=== PATIENT | female | born 1960 | race Asian ===

== ENCOUNTER 2021-02-27 10:41 | Outpatient (CLI) | payer BC, SELFPAY ==
--- NOTE | ~2021-02-27 | MR_ITS ---
EXAMINATION: MR shoulder RT wo con DATE: 02/27/2021 11:44 INDICATION: Acute pain of right shoulder. TECHNIQUE: Magnetic resonance imaging (MRI) of the right shoulder was performed without intravenous c ontrast. Sequences included axial PD-weighted FS FSE, coronal oblique PD-weighted FS FSE and T2-weigh cecy FS FSE, and sagittal oblique T2-weighted FS FSE and T1-weighted FSE. COMPARISON: None. FINDINGS: Coracoacromial arch: The acromion undersurface is curved in morphology (type II). Subacromial spurring is noted. There is moderate acromioclavicular joint osteoarthritis including inferiorly directed osteophytes. There is m oderate subacromial/subdeltoid bursitis. Rotator cuff: There is a full-thickness tear of supraspinatus tendon and anterior infraspinatus tendon measuring 18 mm anterior to posterior by 13 mm proximal to distal. There is a small partial tear at the infraspin atus myotendinous junction. Teres minor tendon is normal. There is severe subscapularis tendinopathy. There is no asymmetric fatty atrophy of the rotator cuff muscle bellies. Biceps tendon and glenoid labrum: Biceps tendon is in bicipital groove. There is a partial tear of intra-articular biceps tendon. There is multifocal tearing of the glenoid labrum, worst posteriorly. Fluid: There is a moderate-sized glenohumeral joint effusion. Bones/cartilage: There is cartilage surface irregularity of glenoid and humeral head. IMPRESSION: 1. Full-thickness rotator cuff tear. Small partial tear of infraspinatus myotendinous junction. 2. Mild glenohumeral joint chondrosis. Labral tear. 3. Moderate acromioclavicular joint osteoarthritis. 4. Moderate-sized glenohumeral joint effusion and moderate subacromial/subdeltoid bursitis. 5. Partial tear of biceps tendon. Reviewed, dictated and finalized at location A. ER DELIVERY IMPRESSION: 1. Full-thickness rotator cuff tear. Small partial tear of infraspinatus myoten dinous junction. 2. Mild glenohumeral joint chondrosis. Labral tear. 3. Moderate acromioclavicular joint osteoarthritis. 4. Moderate-sized glenohumeral joint effusion and moderate subacromial/subdelto id bursitis. 5. Partial tear of biceps tendon.
== END 2021-02-27 10:42 | disposition home or self-care (01) ==
LOC: ANHIMG 10:57
PROVIDERS: PCP Internal Medicine; Visit Provider Orthopaedic Surgery
DX: M75.121 Complete rotator cuff tear or rupture of right shoulder, not specified as traumatic (principal); S46.211A Strain of muscle, fascia and tendon of other parts of biceps, right arm, initial encounter; M75.101 Unspecified rotator cuff tear or rupture of right shoulder, not specified as traumatic; M19.011 Primary osteoarthritis, right shoulder; M25.411 Effusion, right shoulder; M75.51 Bursitis of right shoulder
CPT/HCPCS: 73221